=== PATIENT | male | born 1965 | race Two or more races ===

== ENCOUNTER 2022-08-21 19:49 | Emergency (ER) | payer OTHER ==
[2022-08-21 19:55] VITALS: BP 143/83; PULSE 85; RESP 18; TEMP 98.4; BMI 24.6
[2022-08-21] MEDS ORDERED: KETOROLAC TROMETHAMINE 30 MG/1 ML VIAL IM ONE (20:14)
[2022-08-21] MEDS ORDERED: ACETAMINOPHEN 325 MG TABLET (FP) PO ONE (20:15)
[2022-08-21] MEDS ORDERED: ACETAMINOPHEN 325 MG TABLET (FP) ONE (20:21)
[2022-08-21] MEDS ORDERED: KETOROLAC TROMETHAMINE 30 MG/1 ML VIAL ONE (20:21)
== END 2022-08-21 21:16 | disposition home or self-care (01) ==
LOC: JERFT 19:49
PROC: 3E0233Z Introduction of Anti-inflammatory into Muscle, Percutaneous Approach (ICD-10-PCS; principal; 2022-08-21)
DX: R05.9 Cough, unspecified (principal); Z20.822 Contact with and (suspected) exposure to COVID-19
CPT/HCPCS: 0241U-QW; 71046-TC-FY; 93005; 93010; 99285-25

== ENCOUNTER 2022-10-12 05:27 | Emergency (ER) | payer OTHER ==
[2022-10-12 05:38] VITALS: BMI 27.4
[2022-10-12] MEDS ORDERED: morphine CARPU-JECT 4 MG/1 ML DISP.SYRIN IVPUSH ONE (05:46)
[2022-10-12] MEDS ORDERED: ACETAMINOPHEN 1000 MG/100 ML BAG IVPB ONE (05:46)
[2022-10-12] MEDS ORDERED: ONDANSETRON 4 MG/2 ML VIAL IVPUSH ONE (05:46)
[2022-10-12] MEDS ORDERED: SODIUM CHLORIDE 1,000 ML IV STA (05:46)
[2022-10-12] MEDS ORDERED: morphine SULFATE 4 MG/ML VIAL ONE (05:50)
[2022-10-12] MEDS ORDERED: ACETAMINOPHEN INJECTION 100 ML IVPB ONE (05:50)
[2022-10-12] MEDS ORDERED: ONDANSETRON 4 MG/2 ML VIAL ONE (05:50)
[2022-10-12 06:47] LABS: BASO % 0.9 % (0-2.0); EOS % 0.2 % (0-4.5); HEMATOCRIT 44.8 % (35.4-49); HEMOGLOBIN 14.7 GM/dL (11.7-16.9); LYMPH % 19.7 % (8-40); MCH 29.5 pg (25.7-33.7); MCHC 32.8 g/dl (32.0-35.9); MEAN CELL VOLUME 89.9 fl (80-96); MONO % 4.1 % (3.8-10.2); NEUT % 75.1 % (42.8-82.8); PLATELET COUNT 326 10^3/uL (134-434); RBC 4.98 M/mm3 (4.00-5.60); WHITE BLOOD COUNT 11.5 K/mm3 (4.0-10.0)
[2022-10-12 06:59] LABS: INR 1.04 (0.83-1.09); PROTHROMBIN TIME (PATIENT) 12.1 SEC (9.7-13.0)
[2022-10-12 07:00] LABS: POTASSIUM 4.8 mmol/L (3.5-5.1)
[2022-10-12 07:02] LABS: ACTIVATED PTT 30.7 SECONDS (25.2-36.5); ALBUMIN 3.9 g/dl (3.4-5.0); CALCIUM 9.2 mg/dL (8.5-10.1)
[2022-10-12 07:03] LABS: BLOOD UREA NITROGEN 13.8 mg/dL (7-18)
[2022-10-12 07:05] LABS: CREATININE 0.9 mg/dL (0.55-1.3)
[2022-10-12 07:07] LABS: BILIRUBIN,TOTAL 0.6 mg/dL (0.2-1); TOT PROT 7.6 g/dl (6.4-8.2)
[2022-10-12] MEDS ORDERED: FAMOTIDINE 20 MG/50 ML IVPB 20 MG/50 ML MG IVPB ONE ×2 (07:20→08:36)
[2022-10-12] MEDS ORDERED: MAG HYDROX/AL HYDROX/SIMETH 30 ML UNIT-DOSE CUP PO ONE (07:20)
[2022-10-12] MEDS ORDERED: MAG HYDROX/AL HYDROX/SIMETH 30 ML UNIT-DOSE CUP ONE (08:36)
[2022-10-12 09:13] VITALS: BP 153/83; PULSE 71; RESP 16; TEMP 98.3
== END 2022-10-12 09:31 | disposition home or self-care (01) ==
LOC: JER 05:27
PROC: 3E033GC Introduction of Other Therapeutic Substance into Peripheral Vein, Percutaneous Approach (ICD-10-PCS; principal; 2022-10-12)
PROC: 3E033GC Introduction of Other Therapeutic Substance into Peripheral Vein, Percutaneous Approach (ICD-10-PCS; 2022-10-12)
PROC: 3E033GC Introduction of Other Therapeutic Substance into Peripheral Vein, Percutaneous Approach (ICD-10-PCS; 2022-10-12)
PROC: 3E033GC Introduction of Other Therapeutic Substance into Peripheral Vein, Percutaneous Approach (ICD-10-PCS; 2022-10-12)
PROC: 3E0337Z Introduction of Electrolytic and Water Balance Substance into Peripheral Vein, Percutaneous Approach (ICD-10-PCS; 2022-10-12)
DX: R10.13 Epigastric pain (principal); K52.9 Noninfective gastroenteritis and colitis, unspecified; R11.2 Nausea with vomiting, unspecified
CPT/HCPCS: 36415; 71045-TC-FY; 74177-TC; 80053; 83605; 83690; 83735; 84484; 85025; 85610; 85730; 93005; 93010; 99285-25; Q9967

== ENCOUNTER 2022-10-12 13:02 | Emergency (ER) | payer OTHER ==
[2022-10-12 13:29] VITALS: BP 170/109; PULSE 82; RESP 20; TEMP 98.2; BMI 25.7
[2022-10-12] MEDS ORDERED: ONDANSETRON *ODT* 4 MG TABLET SL ONE (13:55)
[2022-10-12] MEDS ORDERED: morphine CARPU-JECT 2 MG/1 ML DISP.SYRIN IM ONE (13:56)
[2022-10-12] MEDS ORDERED: morphine SULFATE 4 MG/ML VIAL ONE (14:02)
[2022-10-12] MEDS ORDERED: ONDANSETRON *ODT* 4 MG TABLET ONE (14:04)
== END 2022-10-12 15:13 | disposition home or self-care (01) ==
LOC: FER 13:02
PROC: 3E023GC Introduction of Other Therapeutic Substance into Muscle, Percutaneous Approach (ICD-10-PCS; principal; 2022-10-12)
DX: R10.13 Epigastric pain (principal); R11.0 Nausea
CPT/HCPCS: 99284-25; Q0162

== ENCOUNTER 2023-11-29 05:55 | Day surgery (SDC) | payer OTHER ==
[2023-11-29] MEDS ORDERED: FAMOTIDINE 20 MG/50 ML IVPB 20 MG/50 ML MG IVPB ONE (06:26)
[2023-11-29] MEDS ORDERED: MORPHINE SULFATE 2 MG/ML SYRINGE ONE ×2 (06:26→07:13)
[2023-11-29] MEDS ORDERED: ONDANSETRON 4 MG/2 ML VIAL ONE (06:26)
[2023-11-29] MEDS: morphine CARPU-JECT 2 MG/1 ML DISP.SYRIN IVPUSH ONE ×2 (06:53→07:17)
[2023-11-29] MEDS: ONDANSETRON 4 MG/2 ML VIAL IVPUSH ONE (06:56)
[2023-11-29] MEDS: FAMOTIDINE 20 MG/50 ML IVPB 20 MG/50 ML MG IVPB ONE (06:56)
[2023-11-29 07:14] LABS: BASO % 1.2 % (0-2.0); EOS % 0.8 % (0-4.5); HEMATOCRIT 46.5 % (35.4-49); HEMOGLOBIN 15.5 GM/dL (11.7-16.9); LYMPH % 30.2 % (8-40); MCH 29.7 pg (25.7-33.7); MCHC 33.2 g/dl (32.0-35.9); MEAN CELL VOLUME 89.4 fl (80-96); MEAN PLT VOLUME 8.4 fl (7.5-11.1); MONO % 6.6 % (3.8-10.2); NEUT % 61.2 % (42.8-82.8); PLATELET COUNT 300 10^3/uL (134-434); RBC 5.21 M/mm3 (4.00-5.60); RDW 14.1 % (11.9-15.9); WHITE BLOOD COUNT 11.6 K/mm3 (4.0-10.0)
[2023-11-29 07:21] LABS: POTASSIUM 4.3 mmol/L (3.5-5.1)
[2023-11-29 07:22] LABS: INR 0.99 (0.83-1.09); PROTHROMBIN TIME (PATIENT) 11.2 SEC (9.7-13.0)
[2023-11-29 07:23] LABS: CALCIUM 9.3 mg/dL (8.5-10.1)
[2023-11-29 07:25] LABS: ACTIVATED PTT 28.1 SECONDS (25.2-36.5)
[2023-11-29 07:27] LABS: CREATININE 0.9 mg/dL (0.55-1.3)
[2023-11-29 07:29] LABS: BILIRUBIN,TOTAL 0.8 mg/dL (0.2-1); TOT PROT 7.5 g/dl (6.4-8.2)
[2023-11-29] MEDS ORDERED: HYDROmorphone HCL CARPU-JECT 2 MG/1 ML DISP.SYRIN ONE (07:38)
[2023-11-29] MEDS: HYDROmorphone HCl 2 MG/ML VIAL IVPUSH ONE (08:09)
[2023-11-29] MEDS ORDERED: MAG HYDROX/AL HYDROX/SIMETH 30 ML UNIT-DOSE CUP ONE (09:35)
[2023-11-29] MEDS: MAG HYDROX/AL HYDROX/SIMETH 30 ML UNIT-DOSE CUP PO ONE (09:37)
[2023-11-29 12:58] VITALS: BMI 25.6
[2023-11-29] MEDS ORDERED: KETOROLAC TROMETHAMINE 15 MG/ML VIAL IVPUSH PRN (13:05)
[2023-11-30 09:02] LABS: BASO % 0.9 % (0-2.0); EOS % 0.3 % (0-4.5); HEMATOCRIT 45.8 % (35.4-49); HEMOGLOBIN 15.3 GM/dL (11.7-16.9); LYMPH % 24.3 % (8-40); MCH 29.9 pg (25.7-33.7); MCHC 33.4 g/dl (32.0-35.9); MEAN CELL VOLUME 89.5 fl (80-96); MEAN PLT VOLUME 8.6 fl (7.5-11.1); MONO % 10.2 % (3.8-10.2); NEUT % 64.3 % (42.8-82.8); PLATELET COUNT 291 10^3/uL (134-434); RBC 5.11 M/mm3 (4.00-5.60); RDW 14.2 % (11.9-15.9); WHITE BLOOD COUNT 13.2 K/mm3 (4.0-10.0)
[2023-11-30 09:20] LABS: POTASSIUM 4.4 mmol/L (3.5-5.1)
[2023-11-30 09:25] LABS: CALCIUM 9.1 mg/dL (8.5-10.1)
[2023-11-30 09:26] LABS: ALBUMIN 3.7 g/dl (3.4-5.0); BLOOD UREA NITROGEN 11.7 mg/dL (7-18); MAGNESIUM 2.5 mg/dL (1.8-2.4)
[2023-11-30 09:28] LABS: CREATININE 0.9 mg/dL (0.55-1.3)
[2023-11-30 09:29] LABS: PHOSPHOROUS 2.6 mg/dL (2.5-4.9)
[2023-11-30 09:30] LABS: BILIRUBIN,TOTAL 1.3 mg/dL (0.2-1); TOT PROT 7.3 g/dl (6.4-8.2)
[2023-11-30] MEDS ORDERED: ACETAMINOPHEN 325 MG TABLET (FP) PO PRN ×2 (09:42→16:49)
[2023-11-30] MEDS ORDERED: KETOROLAC TROMETHAMINE 15 MG/ML VIAL IVPUSH PRN ×2 (09:43→16:49)
[2023-11-30] MEDS ORDERED: BUPIVACAINE HCL/PF 0.25% (2.5MG/ML) 10 ML VIAL ONE (12:25)
[2023-11-30] MEDS ORDERED: PROPOFOL 40 ML ONE (14:27)
[2023-11-30] MEDS ORDERED: ROCURONIUM BROMIDE 50 MG/5 ML SYRINGE ONE ×2 (14:27→15:10)
[2023-11-30] MEDS ORDERED: SUCCINYLCHOLINE CHLORIDE 200 MG/10 ML SYRINGE ONE (14:27)
[2023-11-30] MEDS ORDERED: MIDAZOLAM HCL 2 MG/2 ML SINGLE DOSE VIAL ONE (14:28)
[2023-11-30] MEDS ORDERED: PROPOFOL 20 ML ONE (14:28)
[2023-11-30] MEDS: cefOXitin SODIUM 2 GM VIAL (RESTRICTED TO ID) IVPB ONE ×2 (15:02)
[2023-11-30] MEDS: BUPIVACAINE HCL/PF 0.25% (2.5MG/ML) 10 ML VIAL IJ ONE (15:04)
[2023-11-30] MEDS ORDERED: HYDROmorphone HCl 2 MG/ML VIAL ONE (15:07)
[2023-11-30] MEDS ORDERED: SODIUM CHLORIDE 0.9% P/F 10 ML VIAL IJ ONE (15:07)
[2023-11-30] MEDS ORDERED: KETOROLAC TROMETHAMINE 30 MG/1 ML VIAL ONE (15:09)
[2023-11-30] MEDS ORDERED: ACETAMINOPHEN INJECTION 100 ML ONE (15:12)
[2023-11-30] MEDS ORDERED: SUGAMMADEX SODIUM 200 MG/2 ML VIAL ONE ×2 (15:32→15:43)
[2023-11-30] MEDS ORDERED: ONDANSETRON 4 MG/2 ML VIAL IVPUSH PRN ×2 (15:59→16:49)
[2023-11-30] MEDS: LACTATED RINGERS SOLUTION 1,000 ML IV SCH ×2 (16:00→17:00)
[2023-11-30] MEDS: ATORVASTATIN CA 20 MG TABLET (FP) PO SCH (22:24)
[2023-12-01] MEDS ORDERED: KETOROLAC TROMETHAMINE 15 MG/ML VIAL IVPUSH PRN (08:17)
[2023-12-01] MEDS ORDERED: oxyCODONE HCL 5 MG TABLET PO PRN (08:17)
[2023-12-01] MEDS: ACETAMINOPHEN 325 MG TABLET (FP) PO SCH (09:31)
[2023-12-01] MEDS: LACTATED RINGERS SOLUTION 1,000 ML/1,000 ML INFUS.BAG IV SCH (11:52)
[2023-12-01 15:04] LABS: BASO % 0.8 % (0-2.0); EOS % 0.2 % (0-4.5); HEMATOCRIT 42.5 % (35.4-49); HEMOGLOBIN 14.5 GM/dL (11.7-16.9); LYMPH % 23.8 % (8-40); MCH 30.4 pg (25.7-33.7); MCHC 34.2 g/dl (32.0-35.9); MEAN CELL VOLUME 88.9 fl (80-96); MONO % 13.8 % (3.8-10.2); NEUT % 61.4 % (42.8-82.8); PLATELET COUNT 263 10^3/uL (134-434); RBC 4.78 M/mm3 (4.00-5.60); RDW 14.1 % (11.9-15.9); WHITE BLOOD COUNT 14.9 K/mm3 (4.0-10.0)
[2023-12-01 15:30] LABS: POTASSIUM 4.1 mmol/L (3.5-5.1)
[2023-12-01 15:33] LABS: ALBUMIN 3.3 g/dl (3.4-5.0); BLOOD UREA NITROGEN 11.4 mg/dL (7-18); CALCIUM 8.6 mg/dL (8.5-10.1)
[2023-12-01 15:36] LABS: CREATININE 0.9 mg/dL (0.55-1.3)
[2023-12-01 15:38] LABS: BILIRUBIN,TOTAL 1.3 mg/dL (0.2-1); TOT PROT 6.8 g/dl (6.4-8.2)
[2023-12-01 15:46] VITALS: BP 148/79; PULSE 89; RESP 18; TEMP 99
== END 2023-12-01 17:57 | disposition home or self-care (01) ==
LOC: JER 05:55 → JERBED 11:41 → UNDOADMOB 11:41 → JERBED 12:31 → J8W 12:31 → JASUSAT 12-01 08:55 → J8W 12-01 09:40 → JASUSAT 12-01 17:57
PROVIDERS: ATTEND Nurse Practitioner Family
PROC: 0FT44ZZ Resection of Gallbladder, Percutaneous Endoscopic Approach (ICD-10-PCS; principal; 2023-12-01)
DX: K81.0 Acute cholecystitis (principal)
CPT/HCPCS: 36415; 71045-TC-FY; 76705-TC; 80053; 83690; 83735; 84100; 84484; 85025; 85610; 85730; 86850; 86900; 86901; 93005; 93010; 94760; 99285-25; J0131

== ENCOUNTER 2024-12-04 06:33 | Day surgery (SDC) | payer OTHER ==
[2024-11-30 11:58] VITALS: BMI 24.3
[2024-12-04 08:46] VITALS: TEMP 97
[2024-12-04 09:25] VITALS: BP 104/69; PULSE 67; RESP 19
== END 2024-12-04 09:55 | disposition home or self-care (01) ==
LOC: JASU-ENDO 06:33
PROVIDERS: ATTEND Internal Medicine Gastroenterology
PROC: 0DB38ZX Excision of Lower Esophagus, Via Natural or Artificial Opening Endoscopic, Diagnostic (ICD-10-PCS; 2024-12-04)
PROC: 0DB78ZX Excision of Stomach, Pylorus, Via Natural or Artificial Opening Endoscopic, Diagnostic (ICD-10-PCS; 2024-12-04)
PROC: 0DB68ZX Excision of Stomach, Via Natural or Artificial Opening Endoscopic, Diagnostic (ICD-10-PCS; 2024-12-04)
PROC: 0DBP8ZX Excision of Rectum, Via Natural or Artificial Opening Endoscopic, Diagnostic (ICD-10-PCS; principal; 2024-12-04 08:00)
DX: Z12.11 Encounter for screening for malignant neoplasm of colon (principal); D12.8 Benign neoplasm of rectum; K64.8 Other hemorrhoids; K57.30 Diverticulosis of large intestine without perforation or abscess without bleeding; K29.50 Unspecified chronic gastritis without bleeding; B96.81 Helicobacter pylori [H. pylori] as the cause of diseases classified elsewhere; K21.00 Gastro-esophageal reflux disease with esophagitis, without bleeding
CPT/HCPCS: 36415; 82941; 88305-TC; 88341-TC; 88342-TC